=== PATIENT | male | born 1935 | race Caucasian/White ===

== ENCOUNTER 2020-12-22 12:24 | Emergency (ER) | payer MEDICARE, OTHER ==
[~2020-12-22] VITALS: Ht 182.9 cm; Wt 113.3 kg
[2020-12-22] MEDS ORDERED: ALLOPURINOL100 MG PO (13:55)
[2020-12-22] MEDS ORDERED: ELIQUIS2.5 MG PO (13:56)
[2020-12-22] MEDS ORDERED: LIPITOR10 MG PO (13:56)
[2020-12-22] MEDS ORDERED: VITAMIN C500 M5 PO (13:57)
[2020-12-22] MEDS ORDERED: FLOMAX0.4 MG PO (13:57)
[2020-12-22] MEDS ORDERED: OCUFLOX5 ML OPTH (13:58)
[2020-12-22] MEDS ORDERED: B-121000 MC2 PO (13:59)
[2020-12-22] MEDS ORDERED: COLACE100 MG PO (13:59)
[2020-12-22] MEDS ORDERED: LISINOPRIL10 MG PO (14:02)
[2020-12-22] MEDS ORDERED: VITAMIN B-12500 MCG PO (14:02)
[2020-12-24] MEDS ORDERED: K-TAB ER20 MEQ (11:00)
== END 2020-12-22 14:29 | disposition home or self-care (01) ==
LOC: ED 12:24
DX: K40.90 Unilateral inguinal hernia, without obstruction or gangrene, not specified as recurrent (principal); I48.91 Unspecified atrial fibrillation; M10.9 Gout, unspecified; Z87.891 Personal history of nicotine dependence; Z79.899 Other long term (current) drug therapy
CPT/HCPCS: 99283

== ENCOUNTER 2020-12-28 08:15 | Day surgery (SDC) | payer MEDICARE, OTHER ==
[~2020-12-28] VITALS: Ht 182.9 cm; Wt 110.0 kg
[~2020-12-28 08:15] MED LIST: ALLOPURINOL100 MG PO; B-121000 MC2 PO; COLACE100 MG PO; ELIQUIS2.5 MG PO; FLOMAX0.4 MG PO; K-TAB ER20 MEQ; LIPITOR10 MG PO; LISINOPRIL10 MG PO; OCUFLOX5 ML OPTH; VITAMIN B-12500 MCG PO; VITAMIN C500 M5 PO
--- NOTE | 2020-12-28 11:40 | NUR ---
12/28/20 1140 Laina Niño 1135- PT TO PACU IN SF POSITION. EYES CLOSED. PT RESPONDS TO TACTILE AND VERBAL STIMULI. OPENS EYES BUT DOES NOT FOLLOW COMMANDS. FALLS QUICKLY BACK TO SLEEP. BREATHING EASY AND UNLABORED. SPO2 >95% ON 6L O2 VIA SIMPLE MASK. 1140- PT SLEEPING COMFORTABLY. BREATHING EASY AND UNLABORED. SPO2 >95% ON 6L O2 VIA SIMPLE MASK. PT COUGHING ON COMMAND AND FALLS QUICKLY BACK TO SLEEP.
[2020-12-28] MEDS ORDERED: HYDROCODON-ACE1 EA10 PO (11:48)
[2020-12-28] MEDS ORDERED: IBUPROFEN600 MG PO (11:48)
[2020-12-28] MEDS ORDERED: ACETAMINOPHEN500 MG PO (11:49)
--- NOTE | 2020-12-28 13:10 | OR ---
[facility] [address], [place] [address] Signed DATE OF OPERATION: 12/28/2020 SURGEON: Alivia Tran MD PREOPERATIVE DIAGNOSIS: Giant left inguinal hernia. POSTOPERATIVE DIAGNOSIS: Giant left inguinal hernia with colonic sliding component. PROCEDURES: 1. Repair of left inguinal hernia with sliding component. 2. Implantation of Prolene mesh. ANESTHESIA: General endotracheal, Simran Worthington CRNA and local 20 mL of 0.25% Marcaine with epinephrine. INDICATION: This 85-year-old white man is a patient of Dee Dixon PA-C in [place], [place]. He presented to the emergency room recently where he was evaluated by Dr. Antwan Malave with a very large left inguinal hernia. The hernia was about the size of a softball. It was reducible quite large and increasingly symptomatic to him. The patient does have long-standing urinary outlet obstructive symptoms, constipation, and other risk factors for such development. The patient has had prostatic surgery and had an indwelling Bradford catheter for quite some time in the past year. He is additionally anticoagulated with Eliquis for atrial fibrillation. His evaluation by Dr. Malave on December 21 showed no evidence of bowel obstruction, but reduction of the hernia was accomplished without problem and he was seen that day for further consideration of repair by me. 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 He is admitted at this time to undergo repair of the hernia having been off his Eliquis for several days. He understands the risks of bleeding, infection, recurrence, need for other indicated procedures and understands and wished to proceed. DESCRIPTION OF PROCEDURE: The patient was brought to the operating room and given a general endotracheal anesthetic. Preoperative antibiotic Ancef was given. Sequential compression device stockings were used and heparin subcutaneously administered. The lower abdomen was clipped and prepared with a chlorhexidine solution and draped sterilely. A curvilinear incision was made cephalad to the pubic tubercle on the left side and dissection carried Electronically Signed By: ALIVIA TRAN MD 12/28/20 1310 PATIENT NAME: PACHECO KIRAN OPERATIVE REPORT DATE OF : 37 REPORT #: [id number] PHYSICIAN: ALIVIA TRAN MD PCP: DEE DIXON PA-C REPORT IS CONFIDENTIAL AND NOT TO BE RELEASED WITHOUT AUTHORIZATION [facility] [address], [place] [address] Signed through the subcutaneous tissue. Marked attenuation of external oblique fibers was noted due to the large size of the hernia. Cord structures were from the hernia sac, which was quite filmy and amorphous. There was no sign of incarceration. Once the hernia sac was fully from the cord structures, the cord was encircled with a [place] drain. The floppy and loose hernia sac, which was about the size of a baseball was opened and noted were filmy fatty type adhesions, ultimately found related to the mesentery of the sigmoid colon. The hernia sac was dissected free as much as possible. Although reduction of the hernia sac and colon could be undertaken without excision of the hernia sac, reduction of the large sac with more narrow neck might hazard internal herniation through such a reduced hernia sac and therefore a portion of hernia sac was excised. The remnant of the hernia sac was reapproximated with 2-0 Vicryl suture allowing for reduction of the sigmoid colon, its mesentery so forth all back into the abdominal cavity. The entire floor was attenuated from the direct type of hernia and only minimal transection of the fascia of the transversalis was required. An Allis clamp was applied to the tendon of the transversus abdominis. A segment of Prolene mesh was cut to an elliptical configuration and secured in the properitoneal space with interrupted 2-0 Prolene suture. A defect was cut in the graft to accommodate the cord and the tails of the graft were secured laterally with all due care as well. There was a snug fit of the cord in relation to the mesh, but not excessively so. A 20 mL of 0.25% Marcaine with epinephrine injected locally. The cord was placed in the canal. Irrigation was undertaken. There was no external oblique to reapproximate over this, therefore, Ben's layer was reapproximated with interrupted 2-0 Vicryl. This skin was closed with a running subcuticular 3-0 Vicryl. Steri-Strips were applied as was an Acticoat silver sponge dressing. The patient was ultimately extubated and transferred to the recovery room in good condition having suffered no complications. Sponge, needle, and instrument counts reported as correct x3. MD RICHARD Marie/MODL /[id number] Electronically Signed By: ALIVIA TRAN MD 12/28/20 1310 PATIENT NAME: PACHECO KIRAN OPERATIVE REPORT DATE OF : 37 REPORT #: [id number] PHYSICIAN: ALIVIA TRAN MD PCP: DEE DIXON PA-C REPORT IS CONFIDENTIAL AND NOT TO BE RELEASED WITHOUT AUTHORIZATION [facility] [address] [place], [place] [address] Signed cc: MD Dee Duran PA-C Copies: ANTWAN MALAVE MD ~ Electronically Signed By: ALIVIA TRAN MD 12/28/20 1310 PATIENT NAME: PACHECO KIRAN OPERATIVE REPORT DATE OF : 37 REPORT #: [id number] PHYSICIAN: ALIVIA TRAN MD PCP: DEE DIXON PA-C REPORT IS CONFIDENTIAL AND NOT TO BE RELEASED WITHOUT AUTHORIZATION
--- NOTE | 2020-12-28 13:51 | NUR ---
TOOK [employer] AND WATER 1205 TO 1300. DECIDED HE WOULD USE URINAL AT BEDSIDE. VOIDS 100MLS LIGHT YELLOW URINE. WANTS TO GO. 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 ASSISTED WITH DRESSING.
--- NOTE | 2020-12-28 19:54 | EKG ---
[facility] [address] [place] [address] Signed Atrial fibrillation with premature ventricular or aberrantly conducted complexes Abnormal ECG No previous ECGs available Confirmed by RAGHU MELO MD ([id number]) on 12/28/2020 7:54:17 PM Electronically Signed By: RAGHU MELO MD 12/28/201953 PATIENT NAME: PACHECO KIRAN Electrocardiogram DATE OF : 37 PHYSICIAN: RAGHU MELO MD REPORT #: [id number] REPORT IS CONFIDENTIAL AND NOT TO BE RELEASED WITHOUT AUTHORIZATION
--- NOTE | 2020-12-29 17:58 | PATH ---
[facility] [address] [place], [place] [address] Signed SPECIMEN(S): A HERNIA SAC SPECIMEN SOURCE: A. HERNIA SAC CLINICAL HISTORY: Left inguinal hernia. FINAL PATHOLOGIC DIAGNOSIS: Hernia sac, excision: - Mesothelial-lined fibromembranous tissue with attached fibroadipose tissue, consistent with hernia sac. NAL:cml:C2NR MICROSCOPIC EXAMINATION: Histologic sections of all submitted blocks are examined by light microscopy. These findings, together with the gross examination, support the pathologic diagnosis. GROSS DESCRIPTION: The specimen, labeled "RE, hernia sac," is received in formalin and consists of irregular shaped fibromembranous and adipose tissue fragment that measure 12.5 x 6.2 x 1.1 cm. Sectioning through the specimen is grossly unremarkable. [employer] Us[employer] sections are submitted in cassette (A1). JS (under the direct supervision of a pathologist) The Gross Description was prepared using a voice recognition system. The report was reviewed for accuracy; however, sound-alike word errors, addition and/or deletions may occur. If there is any question about this report, please contact Client Services. PERFORMING LABORATORY: The technical component was performed by [employer], [address] [place] [id number] (Wood Pile Driver Operator: Chelsy Bautista MD; CLIA# [id number]). [facility] [address] [address] (CLIA# [id number]). Diagnostician: Rosalba Archer MD Pathologist Electronically Signed 12/29/2020 PATIENT NAME: PACHECO KIRAN PATHOLOGY DATE OF : 37 REPORT #: [id number] PHYSICIAN: MIKE JOHNSON PCP: DEE DIXON PA-C REPORT IS CONFIDENTIAL AND NOT TO BE RELEASED WITHOUT AUTHORIZATION [address] [address] Signed Copies: ~ PATIENT NAME: PACHECO KIRAN PATHOLOGY DATE OF : 37 REPORT #: [id number] PHYSICIAN: MIKE JOHNSON PCP: DEE DIXON PA-C REPORT IS CONFIDENTIAL AND NOT TO BE RELEASED WITHOUT AUTHORIZATION
== END 2020-12-28 13:35 | disposition home or self-care (01) ==
LOC: DS 08:15
PROVIDERS: ATTEND Surgery
PROC: 0YU60JZ Supplement Left Inguinal Region with Synthetic Substitute, Open Approach (ICD-10-PCS; principal; 2020-12-28 09:45)
DX: K40.90 Unilateral inguinal hernia, without obstruction or gangrene, not specified as recurrent (principal); I48.20 Chronic atrial fibrillation, unspecified; G60.0 Hereditary motor and sensory neuropathy; G47.30 Sleep apnea, unspecified; Z87.438 Personal history of other diseases of male genital organs; Z79.01 Long term (current) use of anticoagulants
CPT/HCPCS: 00830; 76942; 88302; 93005; 93010; C1781; J0330; J0690; J1100; J1644; J2001; J2405; J2704; J2795; J7121